=== PATIENT | female | born 1945 | race Caucasian/White ===

== ENCOUNTER → 2023-07-10 13:57 | Outpatient (REF) | payer MEDICARE, OTHER, SELFPAY | LOC: RCS 13:57 | PROVIDERS: ATTENDING PHYSICIAN Internal Medicine Cardiovascular Disease; FAMILY PHYSICIAN Family Medicine | DX: I34.1 Nonrheumatic mitral (valve) prolapse (principal); I34.0 Nonrheumatic mitral (valve) insufficiency | CPT/HCPCS: 93306 ==

== ENCOUNTER → 2023-07-17 14:27 | Outpatient (REF) | payer MEDICARE, OTHER, SELFPAY | LOC: WDC 14:27 | PROVIDERS: ATTENDING PHYSICIAN Family Medicine | DX: Z85.3 Personal history of malignant neoplasm of breast (principal); C50.919 Malignant neoplasm of unspecified site of unspecified female breast; Z12.31 Encounter for screening mammogram for malignant neoplasm of breast | CPT/HCPCS: 77063; 77067 ==

== ENCOUNTER 2023-07-29 08:17 | Day surgery (SDC) | payer MEDICARE, OTHER, SELFPAY ==
--- NOTE | 2023-06-24 10:40 | CM ---
Patient is scheduled for an elective R TKR on 07/29/23- she is a same day patient. Spoke with patient prior to surgery. Introduced role of Orthopedic Navigator. Patient reports that she lives with her daughter, Caterina, in a one story home. There is
one step to enter. She currently functions independently. She has a cane and rolling walker. She has never had [facility] services. PCP is Shahla Bermeo.
Discussed orthopedic program and post surgical plans. Reviewed that he will have [facility] services initially (medicare.gov website and ratings reviewed) and will then start outpatient PT. Patient selects [facility] (face sheet faxed to [facility] to facilitate
confirmation of benefits) for her home care needs and will go to for outpatient PT.
Patient is in agreement with plan and states that her daughter will be home with her.
Patient will complete online education.
Plan: Orthopedic Navigator will remain available to assist with the care of patient and will reassess discharge needs after surgery.
[2023-07-09 09:56] LABS: Hematocrit 43.8 % (37.0-47.0); Hemoglobin 15.3 g/dL (12.0-16.0); Mean Corp Hgb Conc. 34.9 g/dL (33.0-37.0); Mean Corpuscular Hgb 35.3 pg (27.0-31.0); Mean Corpuscular Volume 101.2 fL (81.0-99.0); Mean Platelet Volume 10.3 fL (7.4-10.4); Platelet Count 191 10^3/uL (130-400); Red Blood Cell Count 4.33 10^6/uL (4.20-5.40); Red Cell Dist. Width 11.8 % (11.5-14.5); White Blood Cell Count 4.9 10^3/uL (4.8-10.8)
[2023-07-09 10:15] LABS: ALT (SGPT) 17 U/L (0-35); AST (SGOT) 28 U/L (14-36); Albumin 4.6 g/dl (3.5-5.0); Alkaline Phosphatase 59 U/L (38-126); Blood Urea Nitrogen 16 mg/dl (7-17); Calcium 10.2 mg/dl (8.4-10.2); Carbon Dioxide 29 mmol/L (22-30); Chloride 104 mmol/L (98-107); Glucose 105 mg/dl (70-99); Potassium 4.2 mmol/L (3.5-5.1); Sodium 137 mmol/L (135-145); Total Bilirubin 0.9 mg/dl (0.2-1.3); Total Protein 7.2 g/dl (6.3-8.2); eGFR > 60.00
[2023-07-09 12:13] LABS: Glycohemoglobin (HgbA1c) 5.3 % (4.0-5.6)
[2023-07-09 12:41] VITALS: BMI 32.3
[2023-07-09 14:52] VITALS: BMI 32.3
[2023-07-29] VITALS (13 sets, daily range): BP systolic 90–149; BP diastolic 41–79; BMI 32.3
[2023-07-29] MEDS: CELEBREX 200 MG PO (10:07)
[2023-07-29] MEDS: TYLENOL 650 MG PO (10:07)
[2023-07-29] MEDS: NORMOSOL-R 1000 IV (10:07)
--- NOTE | 2023-07-29 13:23 | CM ---
Patient had planned R TKR today. Met with patient at bedside to review discharge plans. Patient will be returning home today with services through [facility]. On , 07/31, patient will start outpatient PT at [facility]. Reviewed MD follow
up in two weeks and patient is aware of need to schedule appointment.
Patient has her rolling walker here with her.
PT and [facility] were kept updated as to progress and discharge plans.
[2023-07-29] MEDS: ANCEF 5 IV (15:35)
== END 2023-07-29 16:05 | disposition home health service (06) ==
LOC: SDS 08:17
PROVIDERS: ATTENDING PHYSICIAN Specialist; FAMILY PHYSICIAN Family Medicine
DX: M17.11 Unilateral primary osteoarthritis, right knee (principal); I87.2 Venous insufficiency (chronic) (peripheral); I34.1 Nonrheumatic mitral (valve) prolapse; G40.909 Epilepsy, unspecified, not intractable, without status epilepticus; E66.9 Obesity, unspecified; Z68.32 Body mass index [BMI] 32.0-32.9, adult
CPT/HCPCS: 27447; 36415; 73560; 80053; 83036; 85027; 86850; 86900; 86901; 87070; 97162; C1713; C1776

== ENCOUNTER 2023-08-08 18:01 | Outpatient (RCR) | payer MEDICARE, OTHER, SELFPAY | END 2023-08-08 23:59 | disposition home or self-care (01) | LOC: RPT 18:01 | PROVIDERS: ATTENDING PHYSICIAN Specialist; FAMILY PHYSICIAN Internal Medicine | DX: Z47.1 Aftercare following joint replacement surgery (principal); Z96.651 Presence of right artificial knee joint | CPT/HCPCS: 97110; 97112; 97163 ==

== ENCOUNTER 2023-09-06 09:56 | Outpatient (RCR) | payer MEDICARE, OTHER, SELFPAY | END 2023-09-06 23:59 | disposition home or self-care (01) | LOC: RPT 09:56 | PROVIDERS: ATTENDING PHYSICIAN Specialist; FAMILY PHYSICIAN Internal Medicine | DX: Z47.1 Aftercare following joint replacement surgery (principal); Z96.651 Presence of right artificial knee joint | CPT/HCPCS: 97010; 97110; 97140; 97530 ==

== ENCOUNTER 2023-10-02 09:07 | Outpatient (RCR) | payer MEDICARE, OTHER, SELFPAY | END 2023-10-08 08:22 | disposition home or self-care (01) | LOC: RPT 09:07 | PROVIDERS: ATTENDING PHYSICIAN Specialist; FAMILY PHYSICIAN Internal Medicine | DX: Z47.1 Aftercare following joint replacement surgery (principal); Z96.651 Presence of right artificial knee joint; Z73.6 Limitation of activities due to disability | CPT/HCPCS: 97010; 97110 ==

== ENCOUNTER 2024-06-01 06:19 | Day surgery (SDC) | payer MEDICARE, OTHER, SELFPAY ==
[2024-05-12 12:48] VITALS: BMI 34.1
[2024-05-12 13:51] LABS: Hematocrit 44.1 % (37.0-47.0); Hemoglobin 15.6 g/dL (12.0-16.0); Mean Corp Hgb Conc. 35.4 g/dL (33.0-37.0); Mean Corpuscular Hgb 35.9 pg (27.0-31.0); Mean Corpuscular Volume 101.6 fL (81.0-99.0); Mean Platelet Volume 10.5 fL (7.4-10.4); Platelet Count 156 10^3/uL (130-400); Red Blood Cell Count 4.34 10^6/uL (4.20-5.40); Red Cell Dist. Width 11.7 % (11.5-14.5)
[2024-05-12 14:43] LABS: ALT (SGPT) 29 U/L (0-35); AST (SGOT) 38 U/L (14-36); Alkaline Phosphatase 45 U/L (38-126); Blood Urea Nitrogen 22 mg/dl (7-17); Carbon Dioxide 27 mmol/L (22-30); Chloride 98 mmol/L (98-107); Estimated Creatinine Clearance 61 ml/min; Glucose 85 mg/dl (70-99); Potassium 3.7 mmol/L (3.5-5.1); Sodium 136 mmol/L (135-145); Total Protein 7.5 g/dl (6.3-8.2); eGFR > 60.00
--- NOTE | 2024-05-18 11:37 | VNURNOTE ---
liaison called patient to discuss upcoming [facility] knee surgery and post-op plans. Left message.
--- NOTE | 2024-05-18 12:22 | VNURNOTE ---
Patient is scheduled for an elective L TKA on 06/01/24- she is a same day patient with Dr Cortés. Spoke with patient prior to surgery. Introduced role of [facility] Liaison. Patient reports that she alone in a rancher home.
There is 1 step to enter.
Patient has a cane and rolling walker.
She had VN services after prior [facility] joint surgery '10 months ago.'
PCP is Dr Gill
Discussed [facility] joint protocol and post surgical plans.
Reviewed that she will have VN services initially and will then start outpatient PT.
Patient selects [facility] for home care needs and will go to 'the outpt PT center by [facility] in [place]' for outpatient PT. Outpt PT start date TBD.
Patient is in agreement with plan and states that her daughter will assist her post op. Advised to bring RW with her day of surgery. Referral placed in [facility].
Plan: [facility] per [facility] joint protocol 06/01 then outpt PT TBD
[2024-05-27 14:00] VITALS: BMI 34.1
[2024-06-01] VITALS (20 sets, daily range): BP systolic 72–126; BP diastolic 42–71; PULSE 62; O2SAT 99
[2024-06-01] MEDS: TYLENOL 650 MG PO (09:12)
[2024-06-01] MEDS: CELEBREX 200 MG PO (09:12)
[2024-06-01] MEDS: NORMOSOL-R/PLASMALYTE-A 1000 IV (09:14)
--- NOTE | 2024-06-01 10:41 | W.DS.TRANS ---
DC Summary - [employer]
-
Discharge Instructions:
Sleep Apnea Risk Low
Discharge Diagnosis/Procedures L TKA 06/01/24
Diet As tolerated
Activity With Walker
Driving Restrictions No driving
Bathing Restrictions OK to Shower
Other Services PT
Instructions:
Stand-Alone Forms: SDS Total Hip and Knee D/C
Changes to Home Medications: Yes
Discharge Medications:
DC Medications w/original date entered in [facility] [employer]
lisinopril 20 mg-hydrochlorothiazide 12.5 mg tablet 1 tab PO DAILY #0 tabs 07/29/23
acetaminophen 325 mg tablet (Tylenol) 650 mg (2 x 325 mg) PO QID #1 tab 06/01/24
aspirin 325 mg tablet 325 mg PO DAILY blood clot prevention #1 tab 06/01/24
celecoxib 100 mg capsule 100 mg PO BID Anti-inflammatory #14 caps 06/01/24
dexamethasone 4 mg tablet 4 mg PO BID inflammation #6 tabs 06/01/24
docusate sodium 100 mg capsule (Colace) 100 mg PO BID stool softner #1 cap 06/01/24
magnesium hydroxide 400 mg/5 mL oral suspension (Milk of Magnesia) 30 ml PO HS Constipation #1 mL 06/01/24
ondansetron 4 mg disintegrating tablet 4 mg PO Q6H PRN n/v #20 tabs 06/01/24
oxycodone 5 mg tablet 5 mg PO Q6H PRN 1 tab moderate pain, 2 tabs severe pain #30 tabs 06/01/24
sennosides 8.6 mg tablet (Senokot) 17.2 mg (2 x 8.6 mg) PO BID laxative #2 tabs 06/01/24
Home Medication Changes
acetaminophen 325 mg tablet (Tylenol) 650 mg (2 x 325 mg) PO QID #1 tab 06/01/24
aspirin 325 mg tablet 325 mg PO DAILY blood clot prevention #1 tab 06/01/24
celecoxib 100 mg capsule 100 mg PO BID Anti-inflammatory #14 caps 06/01/24
dexamethasone 4 mg tablet 4 mg PO BID inflammation #6 tabs 06/01/24
docusate sodium 100 mg capsule (Colace) 100 mg PO BID stool softner #1 cap 06/01/24
magnesium hydroxide 400 mg/5 mL oral suspension (Milk of Magnesia) 30 ml PO HS Constipation #1 mL 06/01/24
ondansetron 4 mg disintegrating tablet 4 mg PO Q6H PRN n/v #20 tabs 06/01/24
oxycodone 5 mg tablet 5 mg PO Q6H PRN 1 tab moderate pain, 2 tabs severe pain #30 tabs 06/01/24
sennosides 8.6 mg tablet (Senokot) 17.2 mg (2 x 8.6 mg) PO BID laxative #2 tabs 06/01/24
Pending Results: No
[2024-06-01] MEDS: ANCEF 5 IV (14:38)
== END 2024-06-01 15:30 | disposition home or self-care (01) ==
LOC: SDS 06:19
PROVIDERS: ATTENDING PHYSICIAN Specialist; FAMILY PHYSICIAN Family Medicine
PROC: 0SRD0J9 Replacement of Left Knee Joint with Synthetic Substitute, Cemented, Open Approach (ICD-10-PCS; 2024-06-01)
DX: M17.12 Unilateral primary osteoarthritis, left knee (principal); M81.0 Age-related osteoporosis without current pathological fracture; I10 Essential (primary) hypertension; E66.9 Obesity, unspecified; Z68.31 Body mass index [BMI] 31.0-31.9, adult; E78.5 Hyperlipidemia, unspecified; Z85.3 Personal history of malignant neoplasm of breast
CPT/HCPCS: 27447; 36415; 73560; 80053; 83036; 85027; 86850; 86900; 86901; 87070; 93005; 97162; 97530; C1713; C1776

== ENCOUNTER → 2024-07-23 10:40 | Outpatient (REF) | payer MEDICARE, OTHER, SELFPAY | LOC: WDC 10:40 | PROVIDERS: ATTENDING PHYSICIAN Family Medicine | DX: Z85.3 Personal history of malignant neoplasm of breast (principal); C50.919 Malignant neoplasm of unspecified site of unspecified female breast; Z12.31 Encounter for screening mammogram for malignant neoplasm of breast | CPT/HCPCS: 77063; 77067 ==